=== PATIENT | male | born 1980 | race Caucasian/White ===

== ENCOUNTER 2018-09-18 08:49 | Emergency (ER) | payer OTHER, MEDICAID, SELFPAY ==
--- NOTE | 2018-09-18 08:53 | ED.DENTAL ---
HPI - Dental/Oral General Chief complaint: Dental/Oral Stated complaint: TOOTH PAIN Time Seen by Provider: 09/18/18 08:53 Source: patient Mode of arrival: ambulatory History of Present Illness HPI Narrative: 30-year-old male here for evaluation of left upper tooth/jaw pain. He states that has been going on for the past several days/weeks. He has had work done on this tooth the past. He did go to a local dentist who told him that they would not be able to see him until October. No problems breathing. No prior interventions for his symptoms prior to arrival. MD Complaint: tooth pain Location: Tooth # (15) Related Data Previous Rx's Medication Instructions Recorded clindamycin HCl 300 mg PO QID 7 Days #28 cap 09/18/18 Review of Systems Constitutional Denies headache(s) ENT Ears, Nose, Mouth, and Throat: Denies headache(s), Denies neck pain, Denies nose pain, Denies tinnitus, Denies sore throat and Denies throat swelling Comments: Tooth pain Cardiovascular Denies edema and Denies dyspnea Respiratory Denies cough and Denies dyspnea Gastrointestinal Gastrointestinal: Denies abdominal pain, Denies nausea and Denies vomiting Musculoskeletal Denies neck pain Integumentary/Breasts Denies rash Neurologic Denies headache(s) Hematologic/Lymphatic Comments: Not on anticoagulation Allergic/Immunologic Denies throat swelling PFSH Medical History Hypertension (Acute) Surgical History No pertinent past surgical history (Acute) Social History Smoking Status: Current every day smoker Exam Initial Vital Signs Initial Vital Signs: Vital Signs Temperature 97.7 F 09/18/18 09:01 Pulse Rate 109 H 09/18/18 09:01 Respiratory Rate 16 09/18/18 09:01 Blood Pressure 148/104 H 09/18/18 09:01 Pulse Oximetry 99 09/18/18 09:01 Const General: cooperative, healthy appearing, comfortable, well developed, well groomed and No acute distress Orientation: alert, awake and oriented x3 HENMT Head: normal to inspection, normocephalic and atraumatic Ears: TM normal on the right Nose: external nose normal Face and sinus: normal facial exam Mouth: oral mucosae normal Teeth and gingiva: caries and other (Left upper tooth 15. With what appears to be carious) Neck Lymphatic: No lymphadenopathy Resp Effort & Inspection: normal respiratory effort Skin Lesions: no lesions Rashes: no rashes Neuro General: alert and awake Extrem General: capillary refill normal Psych Appearance: grossly normal and well kempt Course Vital Signs - 8 hr 09/18/18 09:01 Temperature 97.7 F Pulse Rate 109 H Respiratory Rate 16 Blood Pressure 148/104 H Pulse Oximetry 99 MDM - Dental/Oral MDM Narrative Medical decision making narrative: Patient not on any respiratory distress. He is afebrile. Does have obvious issues with tooth 15.. Has no signs of a definitive abscess that can be drained here in the emergency department. Informed the patient that he needs to follow up with a dentist. I will start him on antibiotics. He did mention that he has been smoking meth so will hold on opioid pain medication. Informed him he could take Motrin and/or Tylenol. He was given return precautions. He expressed understanding and agreement plan. Discharge Plan Departure Patient Disposition: Home Clinical Impression: Pain, dental Instructions: DI for Dental Pain Activity Restrictions/Additional Instructions: I do recommend that you take the antibiotics as directed. You can take Tylenol and/or ibuprofen for any discomfort. I also recommend that you contact of the area dentist to see if they can see you sooner than October. You can also contact the [facility] and [place] at [phone]. There is also a [facility] dental clinic in [place] their phone number is [phone]. Prescriptions: New clindamycin HCl 300 mg capsule 300 mg PO QID 7 Days Qty: 28 RF: 0
[2018-09-18 09:01] VITALS: BP 148/104; PULSE 109; RESP 16; TEMP 36.5; O2SAT 99
== END 2018-09-18 09:27 | disposition home or self-care (01) ==
PROVIDERS: Emergency Provider Emergency Medicine
DX: K08.89 Other specified disorders of teeth and supporting structures (principal)
CPT/HCPCS: 99283